=== PATIENT | male | born 2000 | race African-American/Black ===

== ENCOUNTER 2019-10-23 21:15 | Emergency (ER) | payer OTHER ==
[~2019-10-23] VITALS: Ht 182.9 cm; Wt 67.6 kg
[2019-10-23 22:00] LABS: HEMATOCRIT 45.3 % (42.0-52.0); HEMOGLOBIN 15.1 gm/dL (14.0-18.0); MCH 28.9 pg (26.0-34.0); MCHC 33.4 g/dL (28.0-37.0); MCV 86.7 fL (80.0-100.0); RBC 5.23 mil/uL (4.50-6.00); RDW 13.4 % (10.5-14.5); WBC 8.3 thou/uL (4.0-11.0)
[2019-10-23 22:07] LABS: ANION GAP 7 mmol/L (7-16); BUN 10 mg/dL (7-18); CALCIUM 9.7 mg/dL (8.5-10.1); CHLORIDE 101 mmol/L (98-107); CO2 28 mmol/L (21-32); CREATININE 1.1 mg/dL (0.7-1.3); GLUCOSE 106 mg/dL (74-106); POTASSIUM 3.6 mmol/L (3.5-5.1); SODIUM 136 mmol/L (136-145)
[2019-10-23 22:12] LABS: SALICYLATE < 2.8 mg/dL (2.8-20.0)
[2019-10-23 22:51] LABS: AMP/METHAMP Negative (Negative); BARBITURATES Negative (Negative); BENZODIAZEPINES Negative (Negative); COCAINE Negative (Negative); METHADONE Negative (Negative); OPIATES Negative (Negative); PCP Negative (Negative)
[2019-10-24 14:47] VITALS: BP 117/77
== END 2019-10-24 14:47 | disposition short-term general hospital (02) ==
LOC: ER 21:15
PROVIDERS: Emergency Medicine Emergency Medical Services
DX: R45.851 Suicidal ideations (principal); F32.9 Major depressive disorder, single episode, unspecified; F17.210 Nicotine dependence, cigarettes, uncomplicated